=== PATIENT | female | born 1980 | race Caucasian/White ===

== ENCOUNTER → 2017-08-03 | Outpatient (CLI) | payer BC ==
[~2017-08-03] MED LIST: LANSINOH FOR BR1 OIN TP; MACROBID 1100 MG/CAP; MOTRIN 600600 MG/TAB PO; NEXIUM 40MG40 MG PO; PERCOCET 325 MG1 TA2 PO; PRENATAL1 TA1 PO; TYLENOL 325MG325 MG PO
== END ==
LOC: MC.RAD 09:00
DX: N60.02 Solitary cyst of left breast (principal)

== ENCOUNTER → 2023-08-24 | Outpatient (CLI) | payer SELFPAY | LOC: MC.RAD 09:51 | DX: N60.12 Diffuse cystic mastopathy of left breast (principal); N60.11 Diffuse cystic mastopathy of right breast; N60.41 Mammary duct ectasia of right breast ==